=== PATIENT | female | born 1960 | race Caucasian/White ===

== ENCOUNTER 2018-03-31 13:45 | Emergency (ER) | payer OTHER ==
[2018-03-31 14:15] VITALS: BP 159/109
--- NOTE | 2018-03-31 14:47 | UC ---
Abdominal Pain Female HPI - HPI Summary HPI Summary: This is timothy Mendoza [facility] documenting for attending Cr Alexander MD. Pt is a 57 y/o F c/o abdominal pain onset 5 days ago and worsening today. Pain is located in the LLQ, described as achey, burning, sharp and rated a 6/10, per comp. assessment. Assoc. Sx: Nausea, LLQ pain. Denies: vomiting, CP, SOB, vaginal discharge/bleeding. - History of Current Complaint Chief Complaint: UCAbdominalPain Stated Complaint: ABD PAIN Time Seen by Provider: 03/31/18 14:29 Hx Obtained From: Patient Onset/Duration: Gradual Onset, Lasting Days - 5 days, Still Present, Worse Since - Today Severity Initially: Mild Severity Currently: Moderate Pain Intensity: 6 Pain Scale Used: 0-10 Numeric Location: Discrete At: LLQ Character: Aching, Burning, Sharp Alleviating Factor(s): Nothing Associated Signs and Symptoms: Positive: Nausea. Negative: Chest Pain, Vaginal Bleeding, Vaginal Discharge, Vomiting Allergies/Adverse Reactions: Allergies Allergy/AdvReac Type Severity Reaction Status Date / Time No Known Allergies Allergy Verified 03/31/18 14:16 Home Medications: Home Medications Aspirin 81 mg CHEW TAB* 81 mg PO DAILY 03/31/18 [History Confirmed 03/31/18] PMH/Surg Hx/FS Hx/Imm Hx GI/ History: Diverticulitis - Surgical History Surgical History: Yes Surgery Procedure, Year, and Place: HYSTERECTOMY - Family History Known Family History: Negative: Cardiac Disease, Hypertension, Diabetes - Social History Occupation: Employed Full-time Lives: With Family Alcohol Use: Daily Alcohol Amount: Glass of wine at night Substance Use Type: None Smoking Status (MU): Never Smoked Tobacco Review of Systems Respiratory: Other - NEG: SOB Cardiovascular: Other - NEG: CP Gastrointestinal: Abdominal Pain - LLQ, Nausea, Other - NEG: vomiting Genitourinary: Other - NEG: Vaginal discharge, bleeding All Other Systems Reviewed And Are Negative: Yes Physical Exam - Summary Physical Exam Summary: VITAL SIGNS: Reviewed. GENERAL: Patient is a well-developed and nourished female who is lying comfortable in the stretcher. Patient is not in any acute respiratory distress. HEAD AND FACE: Normocephalic and atraumatic. EYES: PERRLA, EOMI x 2, No injected conjunctiva. EARS: Hearing grossly intact. Ear canals and tympanic membranes are WNL. MOUTH: Oropharynx within normal limits. NECK: Supple, trachea is midline, no adenopathy, no JVD. CHEST: Symmetric, no tenderness at palpation LUNGS: Clear to auscultation bilaterally. No wheezing or crackles. CVS: RRR, S1 and S2 present, no murmurs or gallops appreciated. ABDOMEN: (+) LLQ tenderness, guarding, rebound. No signs of distention. Positive bowel sounds. No masses palpated. No abdominal bruit or pulsations. EXTREMITIES: FROM in all major joints, no edema, no cyanosis or clubbing. NEURO: Alert and oriented x 3. No acute neurological deficits. Speech is normal. SKIN: Dry and warm Triage Information Reviewed: Yes Vital Signs: Initial Vital Signs Temp 99.3 F 03/31/18 14:13 Pulse 95 03/31/18 14:13 Resp 16 03/31/18 14:13 BP 159/109 03/31/18 14:13 Pulse Ox 100 03/31/18 14:13 Vital Signs Reviewed: Yes Abd Pain Female Course/Dx - Course Course Of Treatment: patient is a 57-year-old female who presents to the urgent care with a chief complaint of lower abdominal pain. Patient reports developing onset 5 days ago. The physical exam the patient has a left lower quadrant tenderness more than the right. I believe that the patient may be having diverticulitis versus kidney stone. Therefore the patient was advised to go to the ER for further workup and management. The patient and agrees. She declined ambulance transfer. She will drive herself to the emergency department. Patient is hemodynamically stable alert and oriented 3. - Differential Dx/Diagnosis Provider Diagnoses: Lower abdominal pain Discharge - Sign-Out/Discharge Documenting (check all that apply): Patient Departure - Discharge Plan Condition: Stable Disposition: HOME-RECOMMEND TO ED Patient Education Materials: Acute Abdominal Pain (ED) Referrals: Sammy Lozano MD [Primary Care Provider] - Additional Instructions: Patient will be discharged to the ED for further assessment. Patient declined ambulance
== END 2018-03-31 14:40 | disposition home health service (06) ==
LOC: UCEAST 13:45
DX: R10.32 Left lower quadrant pain (principal); R11.0 Nausea; Z90.710 Acquired absence of both cervix and uterus
CPT/HCPCS: 99212; G0463

== ENCOUNTER 2018-03-31 15:05 | Emergency (ER) | payer OTHER ==
[2018-03-31] MEDS ORDERED: Ondansetron INJ* 2 MG/ML VIAL IV ONE (17:07)
[2018-03-31] MEDS ORDERED: Ketorolac INJ* 30 MG/ML 1 ML VIAL IV PUSH ONE (17:07)
[2018-03-31 17:11] LABS: ABS Basophils 0.1 10^3/ul (0-0.2); ABS Eosinophils 0.1 10^3/ul (0-0.6); ABS Lymphocytes 2.2 10^3/ul (1.0-4.8); ABS Monocytes 0.9 10^3/ul (0-0.8); ABS Neutrophils 12.1 10^3/ul (1.5-7.7); ABS Nucleated RBC 0 10^3/ul; Eosinophil % 0.5 % (0-6); Hematocrit 40 % (35-47); Hemoglobin 13.8 g/dl (12.0-16.0); Lymphocyte % 14.2 % (25-47); Mean Corpuscular HGB Conc 34 g/dl (31-36); Mean Corpuscular Hemoglobin 30 pg (27-31); Mean Corpuscular Volume 89 fL (80-97); Mean Platelet Volume 7.3 um3 (7.4-10.4); Nucleated Red Blood Cells % 0; Platelet Count 362 10^3/ul (150-450); Red Blood Count 4.55 10^6/ul (4.00-5.40); Red Cell Distribution Width 13 % (10.5-15); White Blood Count 15.4 10^3/ul (3.5-10.8)
--- NOTE | 2018-03-31 17:14 | ED ---
Abdominal Pain/Female - HPI Summary HPI Summary: This is timothy Epsteinrey documenting for attending Duglas Isidro MD. This patient is a 57 year old F _presenting to [facility] accompanied by a male with a chief complaint of worsening intermittent, sharp, left sided abd pain since 4 days ago. Pt thought it was gas pain but it never went away. The patient rates the pain 6/10 in severity. Patient reports slight fevers and nausea. Patient denies vomiting, diarrhea, or difficulty passing stool. PMHx diverticulitis. No surgery or hospitalization for past diverticulitis. Pt has had a colonoscopy and everything was normal. Pt has another colonoscopy scheduled for April. - History of Current Complaint Chief Complaint: EDAbdPain Stated Complaint: ABD PAIN/FEVER Time Seen by Provider: 03/31/18 17:00 Hx Obtained From: Patient Onset/Duration: Lasting Days Timing: Intermittent Episode Lasting - several hours Severity Initially: Moderate Severity Currently: Moderate Pain Intensity: 6 Pain Scale Used: 0-10 Numeric Location: Discrete At: LLQ Associated Signs and Symptoms: Positive: Fever, Nausea. Negative: Constipation , Blood in Stool, Vomiting, Diarrhea Allergies/Adverse Reactions: Allergies Allergy/AdvReac Type Severity Reaction Status Date / Time No Known Allergies Allergy Verified 03/31/18 15:19 PMH/Surg Hx/FS Hx/Imm Hx Endocrine/Hematology History: Denies: Hx Diabetes Cardiovascular History: Denies: Hx Congestive Heart Failure, Hx Hypertension History: Denies: Hx Renal Disease EENT History: Denies: Hx Deafness - Cancer History Hx Chemotherapy: No Hx Radiation Therapy: No - Surgical History Surgery Procedure, Year, and Place: HYSTERECTOMY - Immunization History Date of Tetanus Vaccine: PT STATES UNSURE Date of Influenza Vaccine: NONE Infectious Disease History: No Infectious Disease History: Denies: Traveled Outside the [place] in Last 30 Days - Family History Known Family History: Negative: Cardiac Disease, Hypertension, Diabetes - Social History Alcohol Use: Daily Alcohol Amount: Glass of wine at night Substance Use Type: Reports: None Smoking Status (MU): Never Smoked Tobacco Review of Systems Positive: Fever Negative: Dental Pain Positive: Abdominal Pain, Nausea. Negative: Vomiting, Diarrhea All Other Systems Reviewed And Are Negative: Yes Physical Exam - Summary Physical Exam Summary: Appearance: Well-appearing, Well-nourished, lying in bed comfortably Skin: Warm, dry, no obvious rash Eyes: sclera anicteric, no conjunctival pallor ENT: mucous membranes moist, pharynx appears normal Neck: Supple, nontender Respiratory: Clear to auscultation, no signs of respiratory distress Cardiovascular: Normal S1, S2. No murmurs. Normal distal pulses in tibial and radial bilaterally. Abdomen: Soft, normal active bowel sounds present. LLQ tenderness without guarding or rebound. Musculoskeletal: Normal, Strength/ROM Intact Neurological: A&Ox3, awake and alert, mentation is normal, speech is fluent and appropriate Psychiatric: affect is normal, does not appear anxious or depressed Triage Information Reviewed: Yes Vital Signs On Initial Exam: Initial Vitals Temp Pulse Resp BP Pulse Ox 99.6 F 91 18 156/85 93 03/31/18 15:14 03/31/18 15:14 03/31/18 15:14 03/31/18 15:14 03/31/18 15:14 Vital Signs Reviewed: Yes Diagnostics - Vital Signs Vital Signs Temp Pulse Resp BP Pulse Ox 03/31/18 15:14 99.6 F 91 18 156/85 93 - Laboratory Result Diagrams: 03/31/18 17:01 03/31/18 17:01 Lab Statement: Any lab studies that have been ordered have been reviewed, and results considered in the medical decision making process. - CT Abd/Pelvis CT Interpretation Completed By: Radiologist - CT findings are consistent with sigmoid diverticulitis as described above. ED physician has reviewed this report Abdominal Pain Fem Course/Dx - Diagnoses Provider Diagnoses: Diverticulitis of sigmoid colon Discharge - Sign-Out/Discharge Documenting (check all that apply): Patient Departure - Discharge Plan Condition: Good Disposition: HOME Prescriptions: Amoxicillin/Clavulanate TAB* [Augmentin TAB 875*] 875 mg PO BID #28 tab Oxycodone HCl/Acetaminophen [Percocet 5-325 mg Tablet] 1 each PO Q4HR PRN #15 tablet MDD 4 tabs PRN Reason: Pain Patient Education Materials: Diverticulitis (ED) Referrals: Sammy Lozano MD [Primary Care Provider] - - Billing Disposition and Condition Condition: GOOD Disposition: Home
[2018-03-31 17:29] LABS: EGFR Non-African American 61.4 (>60)
[2018-03-31] MEDS ORDERED: Iohexol 300* (CONTRAST) 10 ML SDV IV ONE (18:34)
[2018-03-31 18:42] LABS: Urine Appearance Clear; Urine Blood 2+ (Negative); Urine Color Straw; Urine Ketones Negative (Negative); Urine Protein 1+(30 mg/dL) (Negative); Urine Red Blood Cell 3+(>10/hpf) (Absent); Urine Specific Gravity 1.004 (1.010-1.030); Urine Urobilinogen Negative (Negative); Urine White Blood Cell Trace(0-5/hpf) (Absent)
--- NOTE | 2018-03-31 19:31 | RAD ---
CLINICAL HISTORY: Left lower quadrant pain patient with a history of diverticulitis. Relevant surgical history includes hysterectomy. COMPARISON: CT of the abdomen and pelvis dated March 14, 2008 TECHNIQUE: Contrast enhanced CT examination of the abdomen and pelvis from the lung bases through the initial tuberosities. The patient received 97 mL Omnipaque 300 intravenously prior to imaging.The patient received oral contrast as well prior to imaging. FINDINGS: VISUALIZED LUNG BASES: The visualized lung bases are grossly clear. There is no pleural effusion. ABDOMEN AND PELVIS: The liver, spleen, pancreas and adrenal glands are grossly normal in appearance. The gallbladder is normal. The kidneys are normal in appearance without focal mass, calcification or signs of hydronephrosis. The oral contrast has progressed as far as the rectum. The small and large bowel are not distended. The patient's normal appendix is identified in the right lower quadrant with contrast the lumen measuring 5 mm in diameter (axial image 60 and coronal image 51). There are distal colonic diverticula becoming more concentrated at the rectosigmoid colon. At the junction of the descending and sigmoid colon there is wall thickening measuring up to 1.3 cm in thickness (coronal image 67) pericolonic infiltration of the mesenteric fat and trace fluid. There is no drainable fluid collection. Air-fluid levels are noted more proximally in the colon.. There is no gross retroperitoneal or mesenteric lymphadenopathy. Uterus is surgically absent. The abdominal aorta and iliac arteries are normal in course and diameter. Degenerative changes include multilevel loss of intervertebral disc height involving the lower thoracic and lumbar spine.There are no sinister bone lesions. IMPRESSION: CT findings are consistent with sigmoid diverticulitis as described above.
[2018-03-31] MEDS ORDERED: Amoxicillin/Clavulanate TAB* 875 MG PO ONE (19:47)
[2018-03-31] MEDS ORDERED: oxyCODONE/Acetamin 5/325 MG* TAB PO ONE (19:55)
[2018-03-31 20:23] VITALS: BP 140/90
== END 2018-03-31 20:21 | disposition home or self-care (01) ==
LOC: ED 15:05
DX: K57.32 Diverticulitis of large intestine without perforation or abscess without bleeding (principal)
CPT/HCPCS: 36415; 74177; 80053; 81003; 81015; 85025; 96374; 96375; 99283; A9270-GY; J1885; J2405; Q9967